=== PATIENT | female | born 1995 | race Caucasian/White ===

== ENCOUNTER 2016-06-29 19:15 | Inpatient (IN) | payer BC ==
[~2016-06-29] VITALS: Ht 180.3 cm; Wt 69.4 kg
[2016-06-29] MEDS ORDERED: ONDANSETRON INJ 2 MG/ML 2 ML VIAL IV STA (19:47)
[2016-06-29] MEDS ORDERED: SODIUM CHLORIDE 0.9% 1000ML 2,000 ML IV STA (19:47)
[2016-06-29] MEDS ORDERED: LEVOIUD (19:53)
[2016-06-29] MEDS ORDERED: ACET-1311 PO (19:55)
[2016-06-29 20:26] LABS: BASO % 0.2 %; BASO ABS # 0.03 K/uL (0-0.2); COMPLETE YES; EOS % 0.1 %; HEMATOCRIT 45.3 % (37-47); IG% 0.4 %; LYMPH ABS # 1.31 K/uL (1.2-3.4); MEAN CELL VOLUME 88.6 fL (80-100); MEAN CORPUSCULAR HEMOGLOBIN 30.3 pg (25-34); MEAN CORPUSCULAR HGB CONC 34.2 g/dl (32-36); MEAN PLATELET VOLUME 9.3 fL (7.4-10.4); MONO % 6.3 %; PLATELET COUNT 347 K/uL (130-400); RED BLOOD COUNT 5.11 M/uL (4.2-5.4); WHITE BLOOD COUNT 18.82 K/uL (4.8-10.8)
[2016-06-29 20:31] LABS: URINE APPEARANCE CLOUDY (CLEAR); URINE BILIRUBIN NEG (NEG); URINE COLOR YELLOW; URINE EPITHELIAL CELL AUTO >30 /lpf (0-5); URINE NITRITE NEG (NEG); UROBILINOGEN NEG (NEG); ZZUR CULT IF INDIC CLEAN CATCH YES
[2016-06-29 20:32] LABS: MANUAL MICROSCOPIC REQUIRED? NO; REVIEW REQ? YES
[2016-06-29 20:46] LABS: ALT/SGPT 19 U/L (12-78); BLOOD UREA NITROGEN 20 mg/dl (7-18); BUN/CREATININE RATIO 20.5 (10-20); CALCIUM 8.3 mg/dl (8.5-10.1); CARBON DIOXIDE 25 mmol/L (21-32); CHLORIDE 108 mmol/L (98-107); CREATININE 0.96 mg/dl (0.60-1.20); GLUCOSE 101 mg/dl (70-99); MAGNESIUM 2.2 mg/dl (1.8-2.4); POTASSIUM 3.9 mmol/L (3.5-5.1); SODIUM 143 mmol/L (136-145)
[2016-06-29 20:48] LABS: URINE PATH CASTS 5-10 GRANULAR CASTS /lpf (0)
[2016-06-29 20:49] LABS: ALB/GLOB RATIO 1.1 (0.9-2); ALKALINE PHOSPHATASE 86 U/L (45-117); AST/SGOT 23 U/L (15-37)
[2016-06-29 21:04] LABS: CKMB/CK RATIO 2.6 (0-3.0)
--- NOTE | 2016-06-29 21:24 | DIAGNOSTIC IMAGING REPORT ---
CHEST ONE VIEW PORTABLE CLINICAL HISTORY: Syncope. COMPARISON STUDY: No previous studies for comparison. FINDINGS: Lung volumes are normal. Lungs are clear. There is no pneumothorax or pleural effusion. Cardiac size is normal. Mediastinal contours are normal. There is no evidence of pulmonary edema. IMPRESSION: No acute cardiopulmonary findings. Electronically signed by: Narciso Tipton M.D. 06/29/2016 9:22 PM
[2016-06-29 21:27] LABS: C-REACTIVE PROTEIN < 0.29 mg/dl (0-0.29); URIC ACID 4.4 mg/dl (2.6-7.2)
[2016-06-29 21:30] LABS: INR 1.1 (0.9-1.1); PARTIAL THROMBOPLASTIN RATIO 0.8; PROTHROMBIN TIME (PATIENT) 11.7 SECONDS (9.0-12.0)
[2016-06-29] MEDS ORDERED: ONDANSETRON INJ 2 MG/ML 2 ML VIAL IV PRN (21:45)
[2016-06-29] MEDS ORDERED: ZOLPIDEM TARTRATE 5 MG TAB PO PRN (21:45)
[2016-06-29] MEDS ORDERED: MoRPHine SULFATE 2 MG/ML CARP IV PRN (21:45)
[2016-06-29] MEDS ORDERED: ALUMINUM/MAGNESIUM/SIMETH (MAALOX MAX) 30 ML UDC PO PRN (21:45)
[2016-06-29] MEDS ORDERED: ACETAMINOPHEN 325 MG TAB PO PRN (21:45)
[2016-06-29 21:52] LABS: LYME DISEASE AB IGG NEG (NEG); LYME DISEASE AB IGM NEG (NEG)
--- NOTE | 2016-06-29 22:23 | History and Physical ---
History & Physical Date & Time of Service: Jun 29, 2016 at 22:05 Chief Complaint: Syncope, Illness, Diarrhea Primary Care Physician: No Doctor, Assigned History of Present Illness Source: patient 21 y/o F who denies a significant medical history presents following 2 syncopal episodes. The pt states that she may have eaten some potatoes and developed nausea and diarrhea as a result. She became light headed shortly after, felt warm, developed tunnel vision and then briefly lost consciousness. She was taken to an urgent care center by her father and suffered an additional brief syncopal episode. An EKG was obtained which revealed a RBBB and she was instructed to attend the ER. She was evaluated in the ER, resuscitated with fluids and evaluated for D/C as she had markedly improved clinically. Initial labs however were notable for a (+) troponin. She denies any CP, SOB or previous syncopal episodes. She runs 5-8 miles daily and recently ran a marathon. The pt reports that she was told she had a murmur when she was a child but that this had apparently resolved. Family History Father with HTN and HPL Mother healthy Heart disease reported on mother's side of family Social History Senior studying nutrition at [employer] Does not smoke - active runner Occasional ETOH - Denies drug use Smoking Status: Never Smoker Alcohol Use: occasionally Drug Use: none Allergies Coded Allergies: No Known Allergies (Unverified , 06/29/16) Home Medications Scheduled PRN Acetaminophen (Tylenol), 975 MG PO Q8 PRN for Pain Miscellaneous Medications Levonorgestrel (Iud) (Mirena) Review of Systems Constitutional: No chills, No fever, No sweats Eyes: No worsening of vision ENT: No hearing loss, No nasal symptoms, No unusual epistaxis Respiratory: No cough, No sputum, No wheezing Cardiovascular: No PND, No chest pain, No orthopnea Abdomen: + diarrhea, + nausea, No constipation, No pain, No vomiting Musculoskeletal: No joint pain Genitourinary - Female: No dysuria, No urinary frequency, No urinary urgency Neurologic: + problem reported (Syncope x 2 as above), No memory loss, No paralysis Psychiatric: No depression symptoms Endocrine: No fatigue Hematologic / Lymphatic: No abnormal bleeding/bruising Integumentary: No rash Allergic / Immunologic: No environmental allergies Physical Exam Vital Signs Date Time Temp Pulse Resp B/P Pulse Ox O2 Delivery O2 Flow Rate FiO2 06/29/16 20:46 53 18 119/77 100 Room Air 06/29/16 20:36 57 06/29/16 20:19 99 Room Air 06/29/16 19:24 36.7 76 18 119/65 99 Room Air 06/29/16 19:18 76 119/65 56 120/77 75 112/70 General Appearance: WD/WN, no apparent distress Head: normocephalic, atraumatic Eyes: normal inspection, PERRL, EOMI ENT: normal ENT inspection, hearing grossly normal, TMs normal, pharynx normal Neck: supple, no JVD Respiratory/Chest: chest non-tender, lungs clear, normal breath sounds, no respiratory distress, no accessory muscle use Cardiovascular: regular rate, rhythm, no edema, no gallop, no JVD, no murmur, normal peripheral pulses Abdomen/GI: normal bowel sounds, non tender, soft Back: normal inspection Extremities/Musculoskelatal: normal inspection, no calf tenderness, normal capillary refill, no pedal edema, normal range of motion 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, no motor/sensory deficits, alert, normal mood/affect, normal reflexes, oriented x 3 Skin: normal color, warm/dry, no rash Diagnostics Laboratory Results Results Past 24 Hours Test 06/29/16 20:10 06/29/16 20:15 06/29/16 20:17 Range/Units Urine Color YELLOW Urine Appearance CLOUDY CLEAR Urine pH 7.0 4.5-7.[address] 1.020 1.000-1.030 Urine Protein 1+ NEG Urine Glucose (UA) NEG NEG Urine Ketones TRACE NEG Urine Occult Blood NEG NEG Urine Nitrite NEG NEG Urine Bilirubin NEG NEG Urine Urobilinogen NEG NEG Urine Leukocyte Esterase NEG NEG Urine WBC (Auto) 1-5 0-5 /hpf Urine RBC (Auto) 0-4 0-4 /hpf Urine Hyaline Casts (Auto) >30 0-5 /lpf Urine Epithelial Cells (Auto) >30 0-5 /lpf Urine Bacteria (Auto) 1+ NEG Urine Renal Epithelial Cells 0-5 /lpf Urine Pathogenic Casts 5-10 GRANULAR CASTS 0 /lpf Urine Test NEG NEG White Blood Count 18.82 4.8-10.8 K/uL Red Blood Count 5.11 4.2-5.4 M/uL Hemoglobin 15.5 12.0-16.0 g/dL Hematocrit 45.3 37-47 % Mean Corpuscular Volume 88.6 80-100 fL Mean Corpuscular Hemoglobin 30.3 25-34 pg Mean Corpuscular Hemoglobin Concent 34.2 32-36 g/dl Platelet Count 347 130-400 K/uL Mean Platelet Volume 9.3 7.4-10.4 fL Neutrophils (%) (Auto) 86.0 % Lymphocytes (%) (Auto) 7.0 % Monocytes (%) (Auto) 6.3 % Eosinophils (%) (Auto) 0.1 % Basophils (%) (Auto) 0.2 % Neutrophils # (Auto) 16.21 1.4-6.5 K/uL Lymphocytes # (Auto) 1.31 1.2-3.4 K/uL Monocytes # (Auto) 1.18 0.11-0.59 K/uL Eosinophils # (Auto) 0.02 0-0.5 K/uL Basophils # (Auto) 0.03 0-0.2 K/uL RDW Standard Deviation 40.6 36.4-46.3 fL RDW Coefficient of Variation 12.5 11.5-14.5 % Immature Granulocyte % (Auto) 0.4 % Immature Granulocyte # (Auto) 0.07 0.00-0.02 K/uL Erythrocyte Sedimentation Rate 2 0-21 mm/hr Sodium Level 143 136-145 mmol/L Potassium Level 3.9 3.5-5.1 mmol/L Chloride Level 108 98-107 mmol/L Carbon Dioxide Level 25 21-32 mmol/L Anion Gap 10.0 3-11 mmol/L Blood Urea Nitrogen 20 7-18 mg/dl Creatinine 0.96 0.60-1.20 mg/dl Est Creatinine Clear Calc Drug Dose 93.4 ml/min Estimated GFR () 98.0 Estimated GFR (Non- 84.5 BUN/Creatinine Ratio 20.5 10-20 Random Glucose 101 70-99 mg/dl Uric Acid 4.4 2.6-7.2 mg/dl Calcium Level 8.3 8.5-10.1 mg/dl Magnesium Level 2.2 1.8-2.4 mg/dl Total Bilirubin 0.3 0.2-1 mg/dl Aspartate Amino Transf (AST/SGOT) 23 15-37 U/L Alanine Aminotransferase (ALT/SGPT) 19 12-78 U/L Alkaline Phosphatase 86 45-117 U/L Total Creatine Kinase 81 26-192 U/L Creatine Kinase MB 2.1 0.5-3.6 ng/ml Creatine Kinase MB Ratio 2.6 0-3.0 Troponin I 0.169 0-0.045 ng/ml C-Reactive Protein < 0.29 0-0.29 mg/dl Total Protein 6.6 6.4-8.2 gm/dl Albumin 3.5 3.4-5.0 gm/dl Globulin 3.1 2.5-4.0 gm/dl Albumin/Globulin Ratio 1.1 0.9-2 Lipase 129 73-393 U/L Thyroid Stimulating Hormone (TSH) 1.490 0.300-4.500 uIu/ml Lyme Disease IgG Antibody NEG NEG Lyme Disease IgM Antibody NEG NEG Monoscreen NEG NEG Bedside Troponin I 0.060 0-0.045 ng/ml Microbiology Results 06/29/16 Urine Culture, Received Pending EKG Sinus , RBBB Impression Assessment and Plan 21 y/o F wothout significant medical history presents following syncope x 2 - has abnormal EKG and a slight troponin elevation 1) Syncope - considering her EKG and trop we would need to r/o cardio etiology although symptoms were more typically vasovagal likely from nausea. In addition , heart disease would be less likely in the context of an active long-distance runner who denies exercise-related symptoms. We will trend her troponins and obtain an echo - would consider a cardiology consult or outpt follow-up may be acceptable if no abnormalities are discerned. Will provide daily ASA. 2) Nausea and Diarrhea - IVF - clear diet overnight - pt has improved - no further workup unless symptoms recur Full code - Heparin prophylaxis Total time for this admit including discussion with ER attending, Pt and family - review of labs, EKG, med rec - 36 min Level of Care Telemetry Resuscitation Status FULL RESUSCITATION VTE Prophylaxis VTE Risk Assessment Done? Y/N: Yes Risk Level: Low Given or contraindicated: Unfractionated heparin SQ
--- NOTE | 2016-06-29 22:25 | History and Physical ---
History & Physical [place] [id number] Pt will proceed to CTA - no complaints of CP or SOB at present however as mentioned trop is (+) and we do not have an adequate explanation for the labs.
[2016-06-29] MEDS ORDERED: OPTIRAY 320 IV PRN (22:30)
--- NOTE | 2016-06-29 22:50 | DIAGNOSTIC IMAGING REPORT ---
CHEST CTA for PULMONARY ARTERIES CT DOSE: 412.62 mGycm HISTORY: Atypical chest pain. TECHNIQUE: Multiaxial CT images of the chest were performed following the intravenous administration of contrast to evaluate the pulmonary arteries. Maximal intensity projection images were also obtained. COMPARISON STUDY: None. FINDINGS: There is a normal caliber thoracic aorta with no evidence for dissection. There is no evidence for pulmonary embolus. No pleural effusions. No pneumothorax. The liver and spleen are unremarkable. No mediastinal or hilar lymphadenopathy. The central airways are patent. The lungs are clear. Small amount of residual thymic tissue. IMPRESSION: No evidence for pulmonary embolus. Electronically signed by: Alexys Espinosa M.D. 06/29/2016 10:48 PM
[2016-06-29 23:28] VITALS: BP 109/71; PULSE 54; TEMP 36.4; O2SAT 99; Ht 180.3 cm; Wt 69.4 kg
[2016-06-29] MEDS ORDERED: D5NSS + 20MEQ KCL 1,000 ML IV SCH (23:30)
[2016-06-30 00:01] VITALS: O2SAT 99
[2016-06-30] MEDS: HEPARIN SOD 5000 UNIT/0.5 ML CARP SQ SCH ×2 (01:38→08:02)
[2016-06-30 04:00] VITALS: BP 105/67; PULSE 50; TEMP 36.6; O2SAT 97
[2016-06-30 07:26] VITALS: BP 93/55; PULSE 51; TEMP 36.8; O2SAT 97
[2016-06-30 08:46] LABS: BUN/CREATININE RATIO 19.7 (10-20); CALCIUM 7.9 mg/dl (8.5-10.1); CREATININE 0.65 mg/dl (0.60-1.20); POTASSIUM 3.6 mmol/L (3.5-5.1)
[2016-06-30] MEDS ORDERED: ASPIRIN 81 MG ECTAB PO SCH (09:00)
[2016-06-30 09:01] LABS: BASO % 0.2 %; BASO ABS # 0.02 K/uL (0-0.2); COMPLETE YES; EOS % 1.1 %; HEMATOCRIT 34.9 % (37-47); IG% 0.2 %; LYMPH % 27.1 %; LYMPH ABS # 2.54 K/uL (1.2-3.4); MEAN CELL VOLUME 87.9 fL (80-100); MEAN CORPUSCULAR HEMOGLOBIN 29.5 pg (25-34); MEAN CORPUSCULAR HGB CONC 33.5 g/dl (32-36); MEAN PLATELET VOLUME 9.5 fL (7.4-10.4); MONO % 7.1 %; NEUT % 64.3 %; PLATELET COUNT 264 K/uL (130-400); RED BLOOD COUNT 3.97 M/uL (4.2-5.4); WHITE BLOOD COUNT 9.36 K/uL (4.8-10.8)
--- NOTE | 2016-06-30 10:31 | Discharge Instructions ---
Discharge Instructions Admission Reason for Admission: Syncope And Collapse, Troponin I Above Reference Discharge Discharge Diagnosis / Problem: syncope secondary to reflex caused by vomiting Discharge Goals Goal(s): Diagnostic testing, Therapeutic intervention, Screening Activity Recommendations Activity Limitations: per Instructions/Follow-up section Exercise/Sports Limitations: gradually increase as tolerated, until after follow-up appointment . Instructions / Follow-Up Instructions / Follow-Up keep hydrated, avoid any activity for 1 week, then follow [facility] for running again Current Hospital Diet Patient's current hospital diet: Clear Liquid Diet Discharge Diet Recommended Diet: Regular Diet Pending Studies Studies pending at discharge: no Laboratory Results Last 24 Hours Test 06/29/16 20:10 06/29/16 20:15 06/29/16 20:17 06/29/16 22:45 Urine Color YELLOW Urine Appearance CLOUDY Urine pH 7.0 Urine Specific [place] 1.020 Urine Protein 1+ Urine Glucose (UA) NEG Urine Ketones TRACE Urine Occult Blood NEG Urine Nitrite NEG Urine Bilirubin NEG Urine Urobilinogen NEG Urine Leukocyte Esterase NEG Urine WBC (Auto) 1-5 /hpf Urine RBC (Auto) 0-4 /hpf Urine Hyaline Casts (Auto) >30 /lpf Urine Epithelial Cells (Auto) >30 /lpf Urine Bacteria (Auto) 1+ Urine Renal Epithelial Cells /lpf Urine Pathogenic Casts 5-10 GRANULAR CASTS /lpf Urine Test NEG White Blood Count 18.82 K/uL Red Blood Count 5.11 M/uL Hemoglobin 15.5 g/dL Hematocrit 45.3 % Mean Corpuscular Volume 88.6 fL Mean Corpuscular Hemoglobin 30.3 pg Mean Corpuscular Hemoglobin Concent 34.2 g/dl Platelet Count 347 K/uL Mean Platelet Volume 9.3 fL Neutrophils (%) (Auto) 86.0 % Lymphocytes (%) (Auto) 7.0 % Monocytes (%) (Auto) 6.3 % Eosinophils (%) (Auto) 0.1 % Basophils (%) (Auto) 0.2 % Neutrophils # (Auto) 16.21 K/uL Lymphocytes # (Auto) 1.31 K/uL Monocytes # (Auto) 1.18 K/uL Eosinophils # (Auto) 0.02 K/uL Basophils # (Auto) 0.03 K/uL RDW Standard Deviation 40.6 fL RDW Coefficient of Variation 12.5 % Immature Granulocyte % (Auto) 0.4 % Immature Granulocyte # (Auto) 0.07 K/uL Erythrocyte Sedimentation Rate 2 mm/hr Prothrombin Time 11.7 SECONDS Prothromb Time International Ratio 1.1 Activated Partial Thromboplast Time 20.6 SECONDS Partial Thromboplastin Ratio 0.8 D-Dimer > 64421 ug/L FEU Sodium Level 143 mmol/L Potassium Level 3.9 mmol/L Chloride Level 108 mmol/L Carbon Dioxide Level 25 mmol/L Anion Gap 10.0 mmol/L Blood Urea Nitrogen 20 mg/dl Creatinine 0.96 mg/dl Est Creatinine Clear Calc Drug Dose 93.4 ml/min Estimated GFR () 98.0 Estimated GFR (Non- 84.5 BUN/Creatinine Ratio 20.5 Random Glucose 101 mg/dl Uric Acid 4.4 mg/dl Calcium Level 8.3 mg/dl Magnesium Level 2.2 mg/dl Total Bilirubin 0.3 mg/dl Aspartate Amino Transf (AST/SGOT) 23 U/L Alanine Aminotransferase (ALT/SGPT) 19 U/L Alkaline Phosphatase 86 U/L Total Creatine Kinase 81 U/L Creatine Kinase MB 2.1 ng/ml Creatine Kinase MB Ratio 2.6 Troponin I 0.169 ng/ml C-Reactive Protein < 0.29 mg/dl Total Protein 6.6 gm/dl Albumin 3.5 gm/dl Globulin 3.1 gm/dl Albumin/Globulin Ratio 1.1 Lipase 129 U/L Thyroid Stimulating Hormone (TSH) 1.490 uIu/ml Lyme Disease IgG Antibody NEG Lyme Disease IgM Antibody NEG Monoscreen NEG Bedside Troponin I 0.060 ng/ml Lactic Acid Level 1.2 mmol/L Test 06/30/16 00:46 06/30/16 05:57 Troponin I 0.199 ng/ml 0.207 ng/ml White Blood Count 9.36 K/uL Red Blood Count 3.97 M/uL Hemoglobin 11.7 g/dL Hematocrit 34.9 % Mean Corpuscular Volume 87.9 fL Mean Corpuscular Hemoglobin 29.5 pg Mean Corpuscular Hemoglobin Concent 33.5 g/dl Platelet Count 264 K/uL Mean Platelet Volume 9.5 fL Neutrophils (%) (Auto) 64.3 % Lymphocytes (%) (Auto) 27.1 % Monocytes (%) (Auto) 7.1 % Eosinophils (%) (Auto) 1.1 % Basophils (%) (Auto) 0.2 % Neutrophils # (Auto) 6.02 K/uL Lymphocytes # (Auto) 2.54 K/uL Monocytes # (Auto) 0.66 K/uL Eosinophils # (Auto) 0.10 K/uL Basophils # (Auto) 0.02 K/uL RDW Standard Deviation 40.9 fL RDW Coefficient of Variation 12.6 % Immature Granulocyte % (Auto) 0.2 % Immature Granulocyte # (Auto) 0.02 K/uL Sodium Level 142 mmol/L Potassium Level 3.6 mmol/L Chloride Level 112 mmol/L Carbon Dioxide Level 22 mmol/L Anion Gap 8.0 mmol/L Blood Urea Nitrogen 13 mg/dl Creatinine 0.65 mg/dl Est Creatinine Clear Calc Drug Dose 150.0 ml/min Estimated GFR () 147.1 Estimated GFR (Non- 126.9 BUN/Creatinine Ratio 19.7 Random Glucose 97 mg/dl Calcium Level 7.9 mg/dl Total Creatine Kinase 65 U/L Medical Emergencies . Who to Call and When: Medical Emergencies: If at any time you feel your situation is an emergency, please call 911 immediately. . Non-Emergent Contact Non-Emergency issues call your: Primary Care Provider . Past History Medical & Surgical History: (1) Syncope and collapse . "Provider Documentation" section prepared by Aram Reyna. VTE Core Measure Inpt VTE Proph given/why not?: Unfractionated heparin SQ
--- NOTE | 2016-06-30 10:37 | Discharge Summary ---
Discharge Summary Admission Date: Jun 29, 2016 at 21:36 Discharge Date: Jun 30, 2016 Discharge Disposition: Home Principal Diagnosis: syncope secondary to reflex caused by vomiting in the setting of dehydratio Problems/Secondary Diagnoses: asymptomatic pyuria Medication Reconciliation Continued Medications: Acetaminophen (Tylenol) 325 Mg Tab 975 MG PO Q8 PRN for Pain, TAB Levonorgestrel (Iud) (Mirena) 20 Mcg/24 Hr Iud Referrals At Discharge Follow up Referrals: Physician Referral - Within 1 Week with [facility] Discharge Exam Review of Systems: Constitutional: No chills ENT: No unusual epistaxis Respiratory: No sputum Abdomen: No pain Musculoskeletal: No joint pain Genitourinary - Female: No dysuria, No urinary frequency, No urinary incontinence, No urinary retention, No urinary urgency Neurologic: No memory loss, No weakness Psychiatric: No depression symptoms Endocrine: No fatigue Integumentary: No rash Physical Exam: General Appearance: WD/WN, no apparent distress Eyes: normal inspection, EOMI ENT: hearing grossly normal, pharynx normal Neck: supple, no JVD Respiratory/Chest: chest non-tender, normal breath sounds Cardiovascular: regular rate, rhythm, no gallop Abdomen / GI: non tender, no organomegaly Extremities: normal inspection, no pedal edema Neurologic/Psychiatric: alert, normal mood/affect Skin: normal color, no rash Hospital Course 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 She also asymptomatic pyuria, has her test is negative. She should avoid physical activity for 1 week and follow up [facility] to clear her for running, keep hydrated. her EKG and tele was unremarkable. Her ECHO is pending on d/c and if normal, will d/c home with above recs Total Time Spent: Greater than 30 minutes This includes examination of the patient, discharge planning, medication reconciliation, and communication with other providers. Discharge Instructions Please refer to the electronic Patient Visit Report (Discharge Instructions) for additional information. Additional Copies To [facility]
[2016-06-30 11:16] VITALS: BP 101/66; PULSE 48; TEMP 37; O2SAT 100
--- NOTE | 2016-06-30 12:21 | ECHOCARDIOGRAM REPORT ---
*NOTICE TO RECEIVING DEMOCRAT AGENCY This information is strictly Confidential and protected under [place] law. [place] law prohibits you from making any further disclosure of this information unless further disclosure is expressly permitted by the written consent of the person to whom it pertains or is authorized by law. A general authorization for the release of medical or other information is not sufficient for this purpose. Hospital accepts no responsibility if the information is made available to any other person, INCLUDING THE PATIENT. Interpretation Summary * Conclusions -- * * Normal echocardiogram. * Procedure Details * A complete two-dimensional transthoracic echocardiogram was performed (2D, M-mode, Doppler and color flow Doppler). Left Ventricle * The left ventricle is normal in size. * There is normal left ventricular wall thickness. * Ejection Fraction = 60-65%. * Left ventricular systolic function is normal. * The left ventricular wall motion is normal. Right Ventricle * The right ventricle is normal in size and function. * The right ventricular systolic function is normal. Atria * The left atrial size is normal. * Right atrial size is normal. * The interatrial septum is intact with no evidence for an atrial septal defect. Mitral Valve * The mitral valve is normal in structure and function. * There is no mitral regurgitation noted. Tricuspid Valve * The tricuspid valve is normal in structure and function. * There is trace tricuspid regurgitation. * Right ventricular systolic pressure is normal. Aortic Valve * The aortic valve is trileaflet. * The aortic valve is normal in structure and function. * No aortic regurgitation is present. Pulmonic Valve * The pulmonic valve is not well seen, but is grossly normal. * Trace pulmonic valvular regurgitation. Great Vessels * The aortic root is normal size. * No obvious dissection could be visualized. * The pulmonary artery is not well visualized, but is probably normal size. Pericardium/Pleural * There is no pericardial effusion. Great Vessels * The inferior vena cava is mildly dilated. MMode 2D Measurements and Calculations IVSd 0.88 cm IVSs 1.3 cm LVIDd 5.3 cm LVIDs 3.0 cm LVPWd 0.83 cm LVPWs 1.3 cm IVS/LVPW 1.1 FS 43.1 % EDV(Teich) 134.4 ml ESV(Teich) 35.2 ml EF(Teich) 73.8 % EDV(cubed) 147.5 ml ESV(cubed) 27.2 ml EF(cubed) 81.6 % % IVS thick 49.5 % % LVPW thick 60.8 % LV mass(C)d 162.9 grams LV mass(C)dI 89.9 grams/m\S\2 LV mass(C)s 129.1 grams LV mass(C)sI 71.2 grams/m\S\2 CO(Teich) 6.4 l/min CI(Teich) 3.6 l/min/m\S\2 SV(Teich) 99.2 ml SI(Teich) 54.7 ml/m\S\2 CO(cubed) 7.8 l/min CI(cubed) 4.3 l/min/m\S\2 SV(cubed) 120.3 ml SI(cubed) 66.4 ml/m\S\2 Ao root diam 2.9 cm Ao root area 6.8 cm\S\2 ACS 1.6 cm LA dimension 3.1 cm LA/Ao 1.0 LVAd ap4 44.2 cm\S\2 LVLd ap4 9.9 cm EDV(MOD-sp4) 163.0 ml LVAs ap4 20.7 cm\S\2 LVLs ap4 7.3 cm ESV(MOD-sp4) 51.5 ml EF(MOD-sp4) 68.4 % LVAd ap2 42.5 cm\S\2 LVLd ap2 9.4 cm EDV(MOD-sp2) 162.0 ml LVAs ap2 25.0 cm\S\2 LVLs ap2 7.5 cm ESV(MOD-sp2) 70.6 ml EF(MOD-sp2) 56.4 % CO(MOD-sp4) 7.2 l/min CI(MOD-sp4) 4.0 l/min/m\S\2 SV(MOD-sp4) 111.5 ml SI(MOD-sp4) 61.5 ml/m\S\2 CO(MOD-sp2) 5.9 l/min CI(MOD-sp2) 3.3 l/min/m\S\2 SV(MOD-sp2) 91.4 ml SI(MOD-sp2) 50.4 ml/m\S\2 Doppler Measurements and Calculations MV E max sandi 117.7 cm/sec MV A max sandi 22.7 cm/sec MV E/A 5.2 MV P1/2t max sandi 134.8 cm/sec MV P1/2t 116.3 msec MVA(P1/2t) 1.9 cm\S\2 MV dec slope 339.5 cm/sec\S\2 MV dec time 0.25 sec Ao V2 max 155.6 cm/sec Ao max PG 9.7 mmHg Ao max PG (full) 1.9 mmHg LV V1 max PG 7.8 mmHg LV V1 max 139.4 cm/sec PA V2 max 112.0 cm/sec PA max PG 5.0 mmHg PI max sandi 179.9 cm/sec PI max PG 13.0 mmHg PI dec slope 132.1 cm/sec\S\2 PI P1/2t 398.7 msec TR max sandi 228.0 cm/sec
[2016-06-30 12:40] VITALS: BP 101/66; PULSE 48; TEMP 37; O2SAT 100
--- NOTE | 2016-07-01 23:35 | EMERGENCY ROOM VISIT NOTE ---
History First contact with patient: 19:20 Chief Complaint: SYNCOPE Stated Complaint: SYNCOPE AND COLLAPSE, TROPONIN I ABOVE REFERENCE Nursing Triage Summary: pt arrived als from [facility], reports pt ate "old potatoes that were cooked sometime before clif break" afterwards pt didnt feel well went for a run, then had diarreah. pt went to [facility] and "passed out in lobby" pt given 200cc ns in route History of Present Illness The patient is a 21 year old female who presents to the Emergency Department via EMS for evaluation after syncopal episode. The patient reports that earlier today she ate potatoes in her refrigerator that she felt were very old. She had taken around afterwards and shortly upon returning she felt nauseated. She had an episode of emesis as well as diarrhea. She reports that shortly after vomiting she passed out. She did not strike her head. She reports feeling as though she was only unconscious for a few seconds. She woke and felt shaky and warm. Her father was present and took her to [facility] for evaluation. While waiting to be seen, she reports that she felt very nauseated and had to use the restroom. While ambulating to the restroom she became very warm and flushed. She developed tunneling vision and passed out a second time. Her father was able to catch her and lowered her to the ground. She was only unconscious for seconds as well. She was a bite by staff and hydrated with 200 mL of normal saline prior to arrival in the emergency department. She reports no history of syncope previously. She denies any blood in her vomit or stool. The patient rates her current discomfort as a 0/10. She denies any headaches, dizziness, lightheadedness, chest pain, palpitations, short of breath, hemoptysis, hematochezia, melena, hematuria, or dysuria. The patient does not use control. There is been no recent long-distance travel. There is been no family history of blood clots or bleeding disorders. She does not smoke. Review of Systems A complete 10-point Review of Systems was discussed with the patient, with pertinent positives and negatives listed in the History of Present Illness. All remaining Review of Systems questions can be considered negative unless otherwise specified. Past Medical/Surgical History Medical Problems: (1) Syncope and collapse (2) Troponin I above reference range Social History Smoking Status: Never Smoker Smokeless Tobacco Use: No Alcohol Use: none Drug Use: none Marital Status: single Housing Status: lives with roommate Occupation Status: [employer] student Current/Historical Medications Scheduled PRN Acetaminophen (Tylenol), 975 MG PO Q8 PRN for Pain Miscellaneous Medications Levonorgestrel (Iud) (Mirena) Allergies Coded Allergies: No Known Allergies (Unverified , 06/29/16) Physical Exam Vital Signs Date Time Temp Pulse Resp B/P Pulse Ox O2 Delivery O2 Flow Rate FiO2 06/29/16 21:33 121/80 06/29/16 21:15 56 14 100 06/29/16 20:46 53 18 119/77 100 Room Air 06/29/16 20:45 53 16 100 06/29/16 20:36 57 06/29/16 20:19 99 Room Air 06/29/16 20:02 119/77 06/29/16 19:24 36.7 76 18 119/65 99 Room Air 06/29/16 19:18 76 119/65 56 120/77 75 112/70 Pain Rating (0-10): 0 Physical Exam VITAL SIGNS - Vital signs and nursing notes were reviewed. GENERAL - 21-year-old female appearing her stated age who is in no acute distress. Communicates well with provider and answers questions appropriately. HEAD - NC/AT. EYES - PERRL with EOMI bilaterally. Sclera anicteric. Palpebral conjunctiva pink and moist with no injection noted. EARS - No deformities of external structures noted on gross examination bilaterally. No pain elicited with palpation of the tragus bilaterally. External auditory canals without discharge or otorrhea. Tympanic membranes pearly calderón without retraction or bulging. NOSE - Midline and without cyanosis. No epistaxis or purulent drainage noted. Septum midline without deviation or septal hematoma noted. MOUTH/OROPHARYNX - Without perioral cyanosis. Buccal mucosa pink and moist and without leukoplakia. Tongue midline with equal elevation of palate bilaterally. No tonsillar hypertrophy, erythema, or exudates noted. Good dentition noted. NECK - Neck with FROM. Supple to palpation. LUNGS - Chest wall symmetric without accessory muscle use, intercostals retractions, or central cyanosis. Normal vesicular breath sounds CTA B/L. No wheezes, rales, or rhonchi appreciated. CARDIAC - RRR with S1/S2. No murmur, rubs, or gallops appreciated. No reproducible tenderness to palpation appreciated over the anterior chest wall. ABDOMEN - Abdominal contour flat and without pulsations or visible masses. BS normoactive all four quadrants. No tenderness, palpable masses, hepatosplenomegaly, or ascites noted. EXTREMITIES - No clubbing or peripheral cyanosis. No pretibial edema present. +3 /5 radial and dorsalis pedis pulses palpated throughout. +5/5 strength noted in UE/LE bilaterally. NEUROLOGIC - Cranial nerves II through XII grossly intact. Sensory intact to light touch throughout. PSYCH - A&Ox3 and cooperates fully with examiner. Pt is very pleasant and interacts well with examiner. Medical Decision & Procedures ER Provider Diagnostic Interpretation: Radiological imaging and reports were reviewed by myself. Radiologist's Interpretation as follows: CHEST ONE VIEW PORTABLE CLINICAL HISTORY: Syncope. COMPARISON STUDY: No previous studies for comparison. FINDINGS: Lung volumes are normal. Lungs are clear. There is no pneumothorax or pleural effusion. Cardiac size is normal. Mediastinal contours are normal. There is no evidence of pulmonary edema. IMPRESSION: No acute cardiopulmonary findings. CHEST CTA for PULMONARY ARTERIES CT DOSE: 412.62 mGycm HISTORY: Atypical chest pain. TECHNIQUE: Multiaxial CT images of the chest were performed following the intravenous administration of contrast to evaluate the pulmonary arteries. Maximal intensity projection images were also obtained. COMPARISON STUDY: None. FINDINGS: There is a normal caliber thoracic aorta with no evidence for dissection. There is no evidence for pulmonary embolus. No pleural effusions. No pneumothorax. The liver and spleen are unremarkable. No mediastinal or hilar lymphadenopathy. The central airways are patent. The lungs are clear. Small amount of residual thymic tissue. IMPRESSION: No evidence for pulmonary embolus. Laboratory Results Test 06/29/16 20:10 06/29/16 20:15 06/29/16 20:17 Urine Color YELLOW Urine Appearance CLOUDY (CLEAR) Urine pH 7.0 (4.5-7.5) Urine Specific [place] 1.020 (1.000-1.030) Urine Protein 1+ (NEG) Urine Glucose (UA) NEG (NEG) Urine Ketones TRACE (NEG) Urine Occult Blood NEG (NEG) Urine Nitrite NEG (NEG) Urine Bilirubin NEG (NEG) Urine Urobilinogen NEG (NEG) Urine Leukocyte Esterase NEG (NEG) Urine WBC (Auto) 1-5 /hpf (0-5) Urine RBC (Auto) 0-4 /hpf (0-4) Urine Hyaline Casts (Auto) >30 /lpf (0-5) Urine Epithelial Cells (Auto) >30 /lpf (0-5) Urine Bacteria (Auto) 1+ (NEG) Urine Renal Epithelial Cells /lpf (0-5) Urine Pathogenic Casts 5-10 GRANULAR CASTS /lpf (0) Urine Test NEG (NEG) Erythrocyte Sedimentation Rate 2 mm/hr (0-21) Prothrombin Time 11.7 SECONDS (9.0-12.0) Prothromb Time International Ratio 1.1 (0.9-1.1) Activated Partial Thromboplast Time 20.6 SECONDS (21.0-31.0) Partial Thromboplastin Ratio 0.8 D-Dimer > 76656 ug/L FEU (0-500) Uric Acid 4.4 mg/dl (2.6-7.2) Magnesium Level 2.2 mg/dl (1.8-2.4) Total Bilirubin 0.3 mg/dl (0.2-1) Aspartate Amino Transf (AST/SGOT) 23 U/L (15-37) Alanine Aminotransferase (ALT/SGPT) 19 U/L (12-78) Alkaline Phosphatase 86 U/L (45-117) Creatine Kinase MB 2.1 ng/ml (0.5-3.6) Creatine Kinase MB Ratio 2.6 (0-3.0) C-Reactive Protein < 0.29 mg/dl (0-0.29) Total Protein 6.6 gm/dl (6.4-8.2) Albumin 3.5 gm/dl (3.4-5.0) Globulin 3.1 gm/dl (2.5-4.0) Albumin/Globulin Ratio 1.1 (0.9-2) Lipase 129 U/L (73-393) Procalcitonin 0.30 ng/mL (0-0.5) Thyroid Stimulating Hormone (TSH) 1.490 uIu/ml (0.300-4.500) Lyme Disease IgG Antibody NEG (NEG) Lyme Disease IgM Antibody NEG (NEG) Monoscreen NEG (NEG) Bedside Troponin I 0.060 ng/ml (0-0.045) Date/Time Source Procedure Growth Status 06/29/16 20:10 Urine , Clean Catch Urine Culture - Final MORE THAN THREE TYPES OF ORGANISMS IL... Complete Medications Administered Medications (Trade) Dose Ordered Sig/Juliann Route Start Time Stop Time Status Last Admin Dose Admin Sodium Chloride (Nss 1000ml) 2,000 ml @ 999 mls/hr Q2H1M STAT IV 06/29/16 19:47 06/29/16 21:47 DC 06/29/16 20:33 999 MLS/HR Ondansetron HCl (Zofran Inj) 4 mg NOW STAT IV 06/29/16 19:47 06/29/16 19:49 DC 06/29/16 20:33 4 MG Procedure Patient was placed on the wire winding machine tender and monitored throughout the entire extent of their stay. In addition, the patient's pulse oximetry was monitored throughout the entire stay. Any abnormalities or aberrancies were addressed appropriately. ECG Indication: syncope Rate (beats per minute): 55 Rhythm: sinus bradycardia Findings: RBBB, no acute ischemic change, no ectopy Comparison ECG Date: no prior available ED Course Patient was seen and evaluated by myself. Labs were drawn, saline lock in place. EKG and chest x-rays were obtained. Orthostatic vital signs were obtained prior to hydration. Patient was hydrated with a 2000 mL normal saline bolus and received 4 mg Zofran intravenously. Laboratory results demonstrate a moderate leukocytosis greater than 18,000. She is not anemic. The patient initially has no significant electrode abnormalities. [id number] troponin was elevated at 0.06. At this point, the patient was reevaluated and informed of the studies. A chest x-ray was added in addition to her current labs. The patient is still resting without any complete the pain. She reports feeling much better at this time. D-dimer was found to be elevated to greater than 35, 000. At this point, uric acid as well as Lyme and Monospot ratted. CT of the chest was obtained. CT was unremarkable for PE. Laboratory results and imaging studies were reviewed with the patient and father who acknowledges understanding. They are agreeable to admission for further evaluation. [facility]. Patient admitted in stable condition. Medical Decision Given the patient's presentation and stated complaints, I did elect to perform the above-mentioned workup. The patient presents today after 2 syncopal episodes. The patient is had nausea, vomiting, diarrhea. There is been no blood in either her vomitus or stool. She's had no fevers. She does have a moderate leukocytosis likely related to recent stress reaction. The patient was found to have an elevated troponin. The troponin was repeated on labs and found to be significantly elevated in comparison to [id number] study. Obviously this point, the patient warrants admission for evaluation of this elevation of her troponin in the setting of syncope. Her d-dimer was substantially elevated which is concerning for PE as cause of her syncope and possible heart strain resulting in elevated troponin. Because of this, CTA of the chest was obtained. CT head was actually unremarkable. The patient was admitted to hospitalist service for continued evaluation and management. Patient admitted in stable condition. In the evaluation and treatment of this patient, the following differential diagnoses were considered: AR, ASC, Dysrhythmia, Angina, Mediastinitis, GERD, Esophagitis, PE, Pneumonia, Bronchitis, Costochondritis, Rib Fracture, Zoster. Impression Primary Impression: Troponin I above reference range Additional Impression: Syncope and collapse Departure Information Dispostion Admitted as an inpatient Condition FAIR Referrals No Doctor, Assigned (PCP) Forms HOME CARE DOCUMENTATION FORM, IMPORTANT VISIT INFORMATION Patient Instructions A Signature Page, My [facility]
== END 2016-06-30 13:20 | disposition home or self-care (01) | DRG 641 ==
LOC: ENRESERVTM → ENRESERVDT → EDBD 19:15 → C.EDA 19:17 → C.2T 21:36
PROVIDERS: ADMIT Internal Medicine; ATTEND Hospitalist
DX: E86.0 Dehydration (principal); R29.2 Abnormal reflex; R19.7 Diarrhea, unspecified; R55 Syncope and collapse; R11.10 Vomiting, unspecified